=== PATIENT | female | born 1990 | race Caucasian/White ===

== ENCOUNTER 2016-09-05 06:21 | Day surgery (SDC) | payer OTHER ==
[~2016-09-05] VITALS: Ht 167.6 cm; Wt 71.0 kg
[2016-09-05] MEDS ORDERED: ONDA8TAB9 PO (06:55)
[2016-09-05] MEDS ORDERED: ALPR-475 PO (06:55)
[2016-09-05 06:56] VITALS: BP 108/75
[2016-09-05] MEDS ORDERED: LACTATED RINGERS 1,000 ML IV SCH (07:13)
[2016-09-05] MEDS ORDERED: LIDOCAINE/PF 1%-EPI 1:200K, 30ML ONE (07:25)
[2016-09-05] MEDS ORDERED: SILVER NITRATE STICK TP ONE (07:26)
[2016-09-05] MEDS ORDERED: FLUORESCEIN SODIUM 500 MG/5 ML ONE (07:26)
[2016-09-05 07:30] LABS: BLOOD UREA NITROGEN 9 mg/dL (7-18)
[2016-09-05 08:05] LABS: HCG UR OBC PASS
[2016-09-05] MEDS ORDERED: FENTANYL PF 250 MCG/5ML ONE (08:09)
[2016-09-05] MEDS ORDERED: MIDAZOLAM 1 MG/ML, 2ML ONE ×2 (08:09→10:16)
[2016-09-05] MEDS ORDERED: KETOROLAC 30 MG/1 ML ONE (08:25)
[2016-09-05] MEDS ORDERED: DEXAMETHASONE 4 MG/ML, 1ML ONE (08:25)
[2016-09-05] MEDS ORDERED: PROPOFOL 10 MG/ML, 20ML ONE (08:25)
[2016-09-05] MEDS ORDERED: ONDANSETRON 2MG/ML, 2ML ONE ×2 (08:25)
[2016-09-05] MEDS ORDERED: MEPERIDINE/PF 25MG/0.5ML IVPush PRN (09:00)
[2016-09-05] MEDS ORDERED: LABETALOL 5MG/ML, 20ML IV PRN (09:00)
[2016-09-05] MEDS ORDERED: OXYcodone 5 MG/5 ML ORAL.SOL UDC PO PRN (09:00)
[2016-09-05] MEDS ORDERED: MIDAZOLAM 1 MG/ML, 2ML IV PRN (09:00)
[2016-09-05] MEDS ORDERED: EPHEDRINE 50 MG/ML, 1ML IVPush PRN (09:00)
[2016-09-05] MEDS ORDERED: ACETAMINOPHEN 325 MG TABLET PO PRN (09:00)
[2016-09-05] MEDS ORDERED: ALBUTEROL SULFATE 2.5 MG/3 ML NPPB PRN (09:00)
[2016-09-05] MEDS ORDERED: FENTANYL PF 100 MCG/2ML IV PRN (09:00)
[2016-09-05] MEDS ORDERED: hydrALAzine 20 MG/ML, 1ML IV PRN (09:00)
[2016-09-05] MEDS ORDERED: ONDANSETRON 2MG/ML, 2ML IVPush PRN (09:00)
[2016-09-05] MEDS ORDERED: METOPROLOL 1 MG/ML, 5ML IV PRN (09:00)
[2016-09-05] MEDS ORDERED: morphine SULFATE 10 MG/ML, 1ML IV PRN (09:00)
[2016-09-05] MEDS ORDERED: ACETAMINOPHEN 325 MG TABLET ONE (09:37)
[2016-09-05] MEDS ORDERED: FENTANYL PF 100 MCG/2ML ONE (09:37)
[2016-09-05] MEDS ORDERED: MEPERIDINE/PF 25MG/0.5ML ONE (09:37)
[2016-09-05] MEDS ORDERED: OXYcodone 5 MG/5 ML ORAL.SOL UDC ONE (09:38)
[2016-09-05] MEDS ORDERED: PROMETHAZINE 25 MG/ML, 1ML ONE (09:58)
[2016-09-05] MEDS: PROMETHAZINE 25 MG/ML, 1ML IV PRN ×2 (10:00→10:31)
[2016-09-05] MEDS ORDERED: ALBUTEROL SULFATE 2.5 MG/3 ML ONE (10:20)
== END 2016-09-05 14:15 | disposition home or self-care (01) ==
LOC: OUT 06:21
PROVIDERS: ATTEND Obstetrics & Gynecology Gynecology
DX: N80.3 Endometriosis of pelvic peritoneum (principal); N84.0 Polyp of corpus uteri; N83.8 Other noninflammatory disorders of ovary, fallopian tube and broad ligament; J45.909 Unspecified asthma, uncomplicated; D64.9 Anemia, unspecified; Z88.0 Allergy status to penicillin; Z88.2 Allergy status to sulfonamides; Z88.6 Allergy status to analgesic agent
CPT/HCPCS: 36415; 58558; 58662; 80048; 81003; 81025; 85025; 88304; 88305; 93005; 94640; J1100; J1885; J2175; J2250; J2405; J2550; J2704; J3010; J3490; J7120; J7613